=== PATIENT | male | born 1985 | race Caucasian/White ===

== ENCOUNTER 2016-10-01 12:26 | Emergency (ER) | payer SELFPAY ==
--- NOTE | 2016-10-01 17:21 | ED ---
Nando Mack Erika, scribed for Jeses Nguyen MD on 10/01/16 at 1719 . Abdominal Pain/Male - HPI Summary HPI Summary: Patient is a 31-year-old male presenting to the ED with a CC of abdominal pain starting 1 week ago. He denies trauma. He reports that pain is intermittent, and that each episode lasts for a short time in the morning. Pain originally started in the periumbilical area and is now in the left side of the abdomen. Pain is worse at rest, and improved when moving around. He describes the pain as dull, and rates it a 4/10 at its worst and a 1/10 currently. Associated symptoms include fatigue and a pruritic rash on his left flank. He denies fever , diaphoresis, changes in weight, nausea, vomiting, diarrhea, constipation, blood in stool, dark tarry stools, urinary symptoms, myalgias, and arthralgias. He denies PMHx. FHx diabetes, cancer, hypertension. Patient works at [employer] and lives alone. Pt drinks 6 beers/day, smokes 1 pack of cigarettes per week, and denies illicit drug use. - History of Current Complaint Chief Complaint: EDAbdPain Stated Complaint: ABD PAIN Time Seen by Provider: 10/01/16 16:33 Hx Obtained From: Patient Onset/Duration: Lasting Weeks - about 1 week, Still Present Timing: Intermittent Severity Initially: Moderate Severity Currently: Mild Pain Intensity: 2 Pain Scale Used: 0-10 Numeric Location: Discrete At: LLQ Radiates: No Character: Dull Aggravating Factor(s): Other: - rest Associated Signs And Symptoms: Positive: Other - Rash PMH/Surg Hx/FS Hx/Imm Hx Previously Healthy: Yes Endocrine/Hematology History: Denies: Hx Diabetes Infectious Disease History: No Infectious Disease History: Denies: Traveled Outside the [place] in Last 30 Days - Family History Known Family History: Positive: Hypertension, Diabetes, Other - cancer - Social History Occupation: Employed Full-time Lives: Alone Alcohol Use: Daily Alcohol Amount: 6 beers/day Hx Substance Use: No Substance Use Type: Reports: None Hx Tobacco Use: Yes Smoking Status (MU): Light Every Day Tobacco Smoker Review of Systems Positive: Fatigue. Negative: Fever, Skin Diaphoresis Positive: Abdominal Pain. Negative: Vomiting, Diarrhea, Nausea Negative: dysuria, frequency Negative: Arthralgia, Myalgia Positive: Rash - left flank All Other Systems Reviewed And Are Negative: Yes Physical Exam Triage Information Reviewed: Yes Vital Signs On Initial Exam: Initial Vitals Temp Pulse Resp BP Pulse Ox 97.2 F 76 16 136/90 99 10/01/16 12:27 10/01/16 12:27 10/01/16 12:27 10/01/16 12:27 10/01/16 12:27 Vital Signs Reviewed: Yes Appearance: Positive: Well-Appearing, No Pain Distress Skin: Positive: Warm, Skin Color Reflects Adequate Perfusion, Dry, Other - Rash along a dermatome at the left lower thoracic region. Rash is linear and 7 cm long, and eschar Head/Face: Positive: Normal Head/Face Inspection Eyes: Positive: EOMI, CANDELARIO ENT: Positive: Normal ENT inspection Neck: Positive: Supple, Nontender Cardiovascular: Positive: RRR Abdomen Description: Positive: Nontender, Soft Bowel Sounds: Positive: Present Musculoskeletal: Positive: Normal, Strength/ROM Intact Neurological: Positive: Normal, Sensory/Motor Intact, Alert, Oriented to Person Place, Time Psychiatric: Positive: Affect/Mood Appropriate Diagnostics - Vital Signs Vital Signs Temp Pulse Resp BP Pulse Ox 10/01/16 12:27 97.2 F 76 16 136/90 99 - Laboratory Lab Statement: Any lab studies that have been ordered have been reviewed, and results considered in the medical decision making process. Abdominal Pain Fem Course/Dx - Course Assessment/Plan: RASH IN A LOWER LEFT THORASCIC DERMATOME. WELL IN ED. DISCHARGE HOME STABLE. - Diagnoses Provider Diagnoses: Shingles Discharge - Discharge Plan Condition: Stable Disposition: HOME Patient Education Materials: Acyclovir (By mouth), Shingles (ED) Referrals: [facility] [Outside] Additional Instructions: FOLLOW UP WITH YOUR DOCTOR. RETURN TO THE EMERGENCY DEPARTMENT FOR ANY WORSENING OF YOUR CONDITION OR QUESTIONS OR CONCERNS. The documentation as recorded by the Nando pierre Erika accurately reflects the service I personally performed and the decisions made by me, Jesse Nguyen MD.
[2016-10-01 17:58] VITALS: BP 133/91
== END 2016-10-01 17:35 | disposition home or self-care (01) ==
LOC: ED 12:26
DX: B02.9 Zoster without complications (principal); R21 Rash and other nonspecific skin eruption; F17.210 Nicotine dependence, cigarettes, uncomplicated; R53.83 Other fatigue
CPT/HCPCS: 99282